=== PATIENT | male | born 1980 | race Two or more races ===

== ENCOUNTER 2024-05-04 05:55 | Day surgery (SDC) | payer OTHER ==
[2024-05-04] MEDS ORDERED: MIDAZOLAM HCL/PF 5 MG/ML VIAL IV ONE (08:30)
[2024-05-04] MEDS ORDERED: MEPERIDINE HCL/PF 50 MG/ML VIAL IV ONE (08:30)
[2024-05-04] MEDS ORDERED: DIPHENHYDRAMINE HCL 50 MG/ML VIAL 1ML IV ONE (08:30)
[2024-05-04] MEDS ORDERED: PROTONIX20 MG PO (08:33)
== END 2024-05-04 10:25 | disposition home or self-care (01) ==
LOC: AMB-ENDOS 05:55
PROVIDERS: ATTEND Surgery
DX: K29.50 Unspecified chronic gastritis without bleeding (principal); B96.81 Helicobacter pylori [H. pylori] as the cause of diseases classified elsewhere; R10.13 Epigastric pain; E66.01 Morbid (severe) obesity due to excess calories

== ENCOUNTER 2024-07-16 15:43 | Emergency (ER) | payer OTHER ==
[~2024-07-16] VITALS: Ht 182.9 cm; Wt 133.8 kg
[~2024-07-16 15:43] MED LIST: PROTONIX20 MG PO
[2024-07-16] MEDS ORDERED: TRAMADOL HCL 50 MG TABLET PO ONE (17:00)
[2024-07-16] MEDS ORDERED: APIXABAN 5 MG TABLET PO ONE (18:30)
== END 2024-07-16 18:45 | disposition home or self-care (01) ==
LOC: ER 15:45
DX: I82.492 Acute embolism and thrombosis of other specified deep vein of left lower extremity (principal); Z88.6 Allergy status to analgesic agent; Z98.84 Bariatric surgery status